=== PATIENT | male | born 1975 | race Caucasian/White ===

== ENCOUNTER 2021-06-19 12:10 | Emergency (ER) | payer BC, SELFPAY ==
[2021-06-19 12:24] VITALS: BP 126/93; PULSE 70; RESP 12; TEMP 36.7; O2SAT 98; BMI 28.0
--- NOTE | 2021-06-19 12:47 | CT_ITS ---
WS: [id number] CT scan of the head, 06/19/2021 Clinical Data: Symptoms of Acute Stroke Comparison: None. DLP: 1815.[address] scans at [facility] use at least one of these dose optimization techniques: automat ed exposure control; mA and/or kV adjustment per patient size (includes targeted exams where dose is matched to clinical indication); or iterative reconstruction. Findings: The ventricular system is normal without shift. No recent infarct or hemorrhage is seen. There are no abnormal intracerebral masses. The cerebellum and brainstem are not remarkable. Bony windows of the skull and skull base show no fractures or erosions. There is nasal septal deviati on from left to right. The mastoid air cells, internal auditory canals, sella turcica, intraorbital c ontents, and paranasal sinuses are unremarkable. CT/CT head wo con* [id number] Impression: Negative CT scan of the head
--- NOTE | 2021-06-19 12:47 | ECG_ITS ---
[facility] Test Date: 2021-06-19 Pat Name: Salvatore Mcclellan Department: Room: Gender: Male Bid Analyst: : 1975 Requested By: Skyler Bey I Order Number: [id number] Reading MD: KIMMY RAYGOZA Measurements Intervals Rudolph Rate: 62 P: 30 NV: 142 QRS: 28 QRSD: 83 T: 18 QT: 397 QTc: 405 Interpretive Statements SINUS RHYTHM No previous ECG available for comparison Electronically Signed On 06-19-2021 21:22:43 CDT by KIMMY RAYGOZA [id number]
--- NOTE | 2021-06-19 12:47 | CT_ITS ---
WS: [id number] CTA scan of the head and neck. Additional two-dimensional coronal and sagittal reconstruction along w ith MIP images was performed. 06/19/2021 Clinical Data: Stroke symptoms Comparison: None. DLP: 2217.[address] scans at [facility] use at least one of these dose optimization techniques: automat ed exposure control; mA and/or kV adjustment per patient size (includes targeted exams where dose is matched to clinical indication); or iterative reconstruction. Findings: The carotid arteries bifurcate normally into the internal carotid arteries. The vertebral arteries ar e normal. There is no lymphadenopathy within the neck. The intracerebral circulation shows that the i nternal carotid arteries bifurcate into the anterior and middle cerebral arteries. The basilar arteri al system is normal. The [place] is intact. No aneurysms are seen. There is no prevertebral soft tissue swelling. The bones of the cervical spine and skull demonstrate no erosions. The intraorbital contents, paranasal sinuses, internal auditory canals and sella turcica are normal. The parotid glands are normal. The parapharyngeal areas are unremarkable. The larynx is symmetrical. The thyroid gland shows normal enhancement. CT/CT angio headneck* [id number] Impression: 1. Negative for abnormalities of the cervical carotid and vertebral arterial sy stems. 2. Normal intracerebral circulation with intact [place].
--- NOTE | 2021-06-19 13:00 | ED_ITS ---
HPI - Neuro Symptoms/Deficit General: Chief Complaint: Neuro Symptoms/Deficit Stated Complaint: POSSIBLE TIA Time Seen by Provider: 06/19/21 12:12 Source: patient Mode of arrival: EMS Limitations: no limitations History of Present Illness: HPI Narrative: Patient is a 46-year-old male who has not had any significant past medical history but had symptoms that was diagnosed as a TIA about 2 weeks ago. Symptoms include left-sided numbness and tingling and may be, but he is not sure, some weakness. He had a work-up done at the time including head CT, MRI, carotid Doppler which was all negative. He was discharged home and his primary care provider started him on Lipitor, however it made him very weak so the patient stopped. He has continued with full-strength aspirin daily. 2 days ago he had similar symptoms that also spontaneously resolved. Today while he was driving on his way to play golf he felt flushed, felt tingling in his left arm and numbness in his left lower extremity and so called 911. He also said that he felt a little disoriented. Symptoms have all resolved now. Onset (ago): hour(s) (1) History of same: Yes Severity: mild Quality: numb Relieving factors: time Exacerbating factors: none Context: sudden onset On Anticoagulants: No Associated symptoms: Deny chest pain, cough, diaphoresis, fevers/chills, headache(s), anorexia, malaise, nausea, seizures, short of breath, syncope, tingling, vertigo, vomiting or weakness Treatments Prior to Arrival: Aspirin Review of Systems General: Reports: 10 or more systems reviewed and unremarkable except in HPI and below Const: Denies: malaise or diaphoresis Card: Denies: chest pain or syncope GI: Denies: nausea or vomiting Neuro: Denies: headache(s) or vertigo NIH stroke score NIHSS: Level Of Consciousness - 1a: 0 Level Of Consciousness Questions - 1b: Both Correct Level Of Consciousness Commands - 1c: Both Correct Best Gaze - 2: Normal Visual Jasso - 3: No Visual Loss Facial Palsy - 4: Normal Motor Arm Right - 5: No Drift Motor Arm Left - 5: No Drift Motor Leg Right - 6: No Drift Motor Leg Left - 6: No Drift Limb Ataxia - 7: Absent Sensory - 8: Normal Best Language - 9: No Aphasia Dysarthia - 10: Normal Extinction And Inattention - 11: 0 Score: Total Score: 0 Physical Exam Const: COMMON NORMALS: no acute distress, average body habitus, patient oriented x3, no limitations, healthy appearing, alert and well nourished HENMT: COMMON NORMALS: normocephalic, atraumatic and moist oral mucous membranes HEAD & SCALP: normocephalic and atraumatic Eye: COMMON NORMALS: Equal, round and reactive pupils present, EOMs intact bilaterally, conjunctivae normal and no scleral icterus CONJUNCTIVA: Yes conjunctivae normal PUPIL: Yes Equal, round and reactive pupils present Neck/C-Spine: COMMON NORMALS: full ROM, supple, no meningeal signs, no JVD and No carotid bruits Chest: COMMONS NORMALS: normal inspection of the chest and normal palpation of entire chest wall Resp: COMMON NORMALS: normal respiratory effort, No retractions, No use of accessory muscles, clear to auscultation bilaterally and percussion normal AUSCULTATION: clear to auscultation bilaterally PERCUSSION: percussion normal Cardio: COMMON NORMALS: no JVD, regular rate, regular rhythm, S1 normal heart sound present, S2 normal heart sound present, No gallops present (Cardio), No clicks present (Cardio), No murmurs present (Cardio), No rub (Cardio) and Peripheral pulses 2+ throughout RATE: regular rate RHYTHM: regular rhythm HEART SOUNDS: S1 normal heart sound present and S2 normal heart sound present PERIPHERAL PULSES: Peripheral pulses 2+ throughout GI: COMMON NORMALS: Normal to inspection, nondistended, normoactive bowel sounds present, Soft to palpation, non-tender, No hepatosplenomegaly present, no masses and no bruits PALPATION: Yes Soft to palpation and Yes No hepatosplenomegaly present Extremity: COMMON NORMALS: normal to inspection, full ROM, capillary refill normal, no calf tenderness and no pedal edema Neuro: COMMON NORMALS: patient oriented x3 SENSORIUM/ORIENTATION: Yes alert MENINGEAL SIGNS: Yes no meningeal signs Skin: COMMON NORMALS: no rashes or lesions noted, no wounds, turgor normal, no jaundice, no petechiae and no mottling GENERAL SKIN EXAM: no rashes or lesions noted and turgor normal Course Reevaluation(s): Reevaluation #1: Discussed his lab and imaging findings with him. Negative for acute findings. His was on the phone when asked discussing his findings with him. Advised that he will benefit from evaluation by a neurologist and one of the things I would like him to be evaluated for his possible seizures. Advised that he will need an EEG. They have an appointment with his primary care provider on Wednesday and a plan to ask for referral to neurology. Meanwhile we will discharge him home with no new orders. He voiced understanding and is in agreement with the plan. Time: 14:40 Vital Signs: Vital signs: Vital Signs Temperature 98.0 F 06/19/21 12:24 Pulse Rate 67 06/19/21 14:55 Respiratory Rate 17 06/19/21 14:55 Blood Pressure 133/88 06/19/21 14:55 Pulse Oximetry 97 06/19/21 14:55 MDM - Neuro Symptoms/Deficit MDM Narrative: Medical decision making narrative: 46-year-old male who presents with symptoms that he felt could be attributed to a TIA. This is his third event where he has numbness in his left upper and lower extremity. He has had a thorough work-up in the past and again today he had a CT of the head and a CTA of his head and neck. Both were negative. Labs were also unremarkable. He is discharged home with no new orders but he is to follow-up with a neurologist for evaluation for possible seizure. Lab Data: Labs: Lab Results 06/19/21 06/19/21 06/19/21 Range/Units 12:25 12:55 12:55 WBC 6.0 (4.0-10.0) 10^3/ uL RBC 5.36 H (4.1-5.3) 10^6/u L Hgb 16.1 (11.7-16.6) g/dL Hct 47.4 (42.0-52.0) % MCV 88.4 (80-94) fL MCH 30.0 (28.0-34.0) pg MCHC 34.0 (30.0-36.0) g/dL RDW 12.1 (12.1-15.1) % Plt Count 245 (130-400) 10^3/c mm MPV 11.4 H (7.4-10.4) fL Neut % (Auto) 63.9 % Lymph % (Auto) 26.4 % [place] % (Auto) 6.9 % Eos % (Auto) 1.8 % Baso % (Auto) 0.7 % Neut # (Auto) 3.80 (1.8-7.7) 10^3/u L Lymph # (Auto) 1.6 (0.8-4.8) 10^3/u L [place] # (Auto) 0.4 (0.2-0.9) 10^3/u L Eos # (Auto) 0.1 (0.0-0.8) 10^3/u L Baso # (Auto) 0.0 (0.0-0.1) 10^3/u L Nucleated RBC % (a uto) 0 % Nucleated RBCs # 0.0 /100WBC PT (12.1-14.9) SECO NDS INR (0.8-1.2) Sodium 141 (136-145) mmol/L Potassium 4.1 (3.5-5.1) mmol/L Chloride 104 (98-107) mmol/L Carbon Dioxide 26 (22-29) mmol/L Anion Gap 15.1 (5-19) BUN 13 (6-20) mg/dL Creatinine 1.0 (0.7-1.2) mg/dL GFR Calculation 81.2 L (90-130) mL/min Glucose 88 (65-115) mg/dL Calculated Osmolal ity 292 (285-295) mOsm/k g Calcium 9.4 (8.5-10.5) mg/dL Total Bilirubin 0.4 (0.15-1.2) mg/dL AST 14 (0-40) U/L ALT 20 (0-41) U/L Alkaline Phosphata se 66 (40-130) IU/L Troponin T Gen 5 n g/L 6 (0-15) ng/L Total Protein 6.8 (6.6-8.7) g/dL Albumin 4.9 (3.5-5.2) g/dL Globulin 1.9 (1.3-4.6) g/dL /10/28 Range/Units 14:11 WBC (4.0-10.0) 10^3/ uL RBC (4.1-5.3) 10^6/u L Hgb (11.7-16.6) g/dL Hct (42.0-52.0) % MCV (80-94) fL MCH (28.0-34.0) pg MCHC (30.0-36.0) g/dL RDW (12.1-15.1) % Plt Count (130-400) 10^3/c mm MPV (7.4-10.4) fL Neut % (Auto) % Lymph % (Auto) % [place] % (Auto) % Eos % (Auto) % Baso % (Auto) % Neut # (Auto) (1.8-7.7) 10^3/u L Lymph # (Auto) (0.8-4.8) 10^3/u L [place] # (Auto) (0.2-0.9) 10^3/u L Eos # (Auto) (0.0-0.8) 10^3/u L Baso # (Auto) (0.0-0.1) 10^3/u L Nucleated RBC % (a uto) % Nucleated RBCs # /100WBC PT 13.50 (12.1-14.9) SECO NDS INR 1.00 (0.8-1.2) Sodium (136-145) mmol/L Potassium (3.5-5.1) mmol/L Chloride (98-107) mmol/L Carbon Dioxide (22-29) mmol/L Anion Gap (5-19) BUN (6-20) mg/dL Creatinine (0.7-1.2) mg/dL GFR Calculation (90-130) mL/min Glucose (65-115) mg/dL Calculated Osmolal ity (285-295) mOsm/k g Calcium (8.5-10.5) mg/dL Total Bilirubin (0.15-1.2) mg/dL AST (0-40) U/L ALT (0-41) U/L Alkaline Phosphata se (40-130) IU/L Troponin T Gen 5 n g/L (0-15) ng/L Total Protein (6.6-8.7) g/dL Albumin (3.5-5.2) g/dL Globulin (1.3-4.6) g/dL Imaging Data^: CT Head: Attestation: I personally reviewed and interpreted this imaging study as follows: Radiologist's impression: [employer] [address] [place], [place] [address]XK Scan ReportSigned Patient: Puneet Mcclellan #: [id number]: 1975Acct#:[id number]/Sex: 46 / MADM Date: 06/19/21Loc: ERRoom/Bed:Attending Dr: Ordering Provider/Ordering MD: Skyler Bey MD, [facility] [place] Date of Service: 06/19/21 Procedure(s): CT head wo con* [id number] Accession Number(s): [id number] Report Number: [id number] WS: [id number] CT scan of the head, 06/19/2021 Clinical Data: Symptoms of Acute Stroke Comparison: None. DLP: 1815.[address] scans at [facility] use at least one of these dose optimization techniques: automated exposure control; mA and/or kV adjustment per patient size (includes targeted exams where dose is matched to clinical indication); or iterative reconstruction. Findings: The ventricular system is normal without shift. No recent infarct or hemorrhage is seen. There are no abnormal intracerebral masses. The cerebellum and brainstem are not remarkable. Bony windows of the skull and skull base show no fractures or erosions. There is nasal septal deviation from left to right. The mastoid air cells, internal auditory canals, sella turcica, intraorbital contents, and paranasal sinuses are unremarkable. CT/CT head wo con* [id number] Impression: Negative CT scan of the head Dictated By:Julianne Yan MDSigned By:Julianne Yan MDSigned Date/Time:06/19/21 1408DD/ [address]: Attestation: I personally reviewed and interpreted this imaging study as follows: Radiologist's impression: [place] [facility] [address], [place] [address]IS Scan ReportSigned Patient: Puneet Mcclellan #: [id number]: 1975Acct#:[id number]/Sex: 46 / MADM Date: 06/19/21Loc: ERRoom/Bed:Attending Dr: Ordering Provider/Ordering MD: Skyler Bey MD, [facility] [place] Date of Service: 06/19/21 Procedure(s): CT angio headneck* [id number] Accession Number(s): [id number] Report Number: [id number] WS: [email or web address] CTA scan of the head and neck. Additional two-dimensional coronal and sagittal reconstruction along with MIP images was performed. 06/19/2021 Clinical Data: Stroke symptoms Comparison: None. DLP: 2217.[address] scans at [facility] use at least one of these dose optimization techniques: automated exposure control; mA and/or kV adjustment per patient size (includes targeted exams where dose is matched to clinical indication); or iterative reconstruction. Findings: The carotid arteries bifurcate normally into the internal carotid arteries. The vertebral arteries are normal. There is no lymphadenopathy within the neck. The intracerebral circulation shows that the internal carotid arteries bifurcate into the anterior and middle cerebral arteries. The basilar arterial system is normal. The [place] of [place] is intact. No aneurysms are seen. There is no prevertebral soft tissue swelling. The bones of the cervical spine and skull demonstrate no erosions. The intraorbital contents, paranasal sinuses, internal auditory canals and sella turcica are normal. The parotid glands are normal. The parapharyngeal areas are unremarkable. The larynx is symmetrical. The thyroid gland shows normal enhancement. CT/CT angio headneck* [id number] Impression: 1. Negative for abnormalities of the cervical carotid and vertebral arterial systems. 2. Normal intracerebral circulation with intact [place]. Dictated By:Julianne Yan MDSigned By:Julianne Yan MDSigned Date/Time:06/19/21 1415DD/ 1408 EKG Data^: EKG 1: Attestation: I personally reviewed and interpreted this EKG as follows: EKG interpretation date: 06/19/21 EKG interpretation time: 12:54 Prior EKG tracings: not available for review Interpretation: Sinus rhythm. Heart rate 62 bpm. Normal axis. No ST changes. Discharge Plan Discharge Patient Disposition: Home Clinical Impression: Paresthesia of left arm, Anxiety Transient cerebral ischemia Qualifiers: Transient cerebral ischemia type: unspecified Qualified Code(s): G45.9 - Transient cerebral ischemic attack, unspecified Condition: Stable Prescriptions: New hydroxyzine HCl 25 mg tablet 25 mg PO TID PRN (Reason: anxiety) Qty: 30 RF: 0 Continued atorvastatin 40 mg tablet 40 mg PO DAILY MDD SEE PHARMACY COMMENT RF: 0 aspirin 81 mg tablet,chewable 81 mg PO DAILY RF: 0 colchicine 0.6 mg tablet 0.6 mg PO BID RF: 0 Discharge Orders: Discharge ED (Routine); Ordered 06/19/21 Ordered By: Skyler Bey Discharge Diet: Usual diet Discharge Activity: Increase activity as tolerated Patient Instructions: Transient Ischemic Attack (ED), Paresthesia (ED), Anxiety (ED) Activity Restrictions/Additional Instructions: Return for any new or worsening symptoms. Follow-up with your primary care provider on Wednesday as scheduled. You will need to be referred to a neurologist for further evaluation and to see if an EEG can be done also. Take the medication as prescribed and see if that helps with your anxiety symptoms. Coding Level of Care Code ED Price Accuracy Supervisor for Amanda Monteiro Exam Comprehensive
[2021-06-19 13:02] VITALS: BP 121/90; PULSE 68; RESP 16; O2SAT 97
--- NOTE | 2021-06-19 13:09 | PC.PHAR ---
PT VERIFIED MEDICATIONS FILLED BY [facility] - PT STATES HE DOES NOT TAKE HIS LIPITOR 40MG REGULARLY, BUT TRIES TO TAKE IT ONCE DAILY. PT TAKES COLCHICINE 0.6MG BID - PRESCRIBED ONCE DAILY.
[2021-06-19 13:16] LABS: Basophils % 0.7 %; Eosinophils # 0.1 10^3/uL (0.0-0.8); Eosinophils % 1.8 %; Hematocrit 47.4 % (42.0-52.0); Hemoglobin 16.1 g/dL (11.7-16.6); Lymphocytes # 1.6 10^3/uL (0.8-4.8); Lymphocytes % 26.4 %; Mean Corpuscular Volume 88.4 fL (80-94); Mean Platelet Volume 11.4 fL (7.4-10.4); Monocytes # 0.4 10^3/uL (0.2-0.9); Monocytes % 6.9 %; Neutrophils % 63.9 %; Nucleated Red Blood Cells % 0 %; Platelet Count 245 10^3/cmm (130-400); Red Blood Count 5.36 10^6/uL (4.1-5.3); Red Cell Distribution Width 12.1 % (12.1-15.1)
[2021-06-19 13:44] LABS: Alanine Aminotransferase 20 U/L (0-41); Albumin Level 4.9 g/dL (3.5-5.2); Alkaline Phosphatase 66 IU/L (40-130); Anion Gap 15.1 (5-19); Aspartate Amino Transferase 14 U/L (0-40); Blood Urea Nitrogen 13 mg/dL (6-20); Calcium 9.4 mg/dL (8.5-10.5); Carbon Dioxide 26 mmol/L (22-29); Chloride 104 mmol/L (98-107); Globulin 1.9 g/dL (1.3-4.6); Glomerular Filtration Rate 81.2 mL/min (90-130); Glucose 88 mg/dL (65-115); Osmolality Calculated 292 mOsm/kg (285-295); Potassium 4.1 mmol/L (3.5-5.1); Sodium 141 mmol/L (136-145); Total Bilirubin 0.4 mg/dL (0.15-1.2); Total Protein 6.8 g/dL (6.6-8.7)
[2021-06-19] MEDS: iohexol 350 mg/mL 100 mL Btl IV (14:04)
[2021-06-19 14:09] LABS: Troponin T (5th) Once 6 ng/L (0-15)
[2021-06-19 14:18] VITALS: BP 144/93; PULSE 68; RESP 18; O2SAT 96
[2021-06-19 14:55] VITALS: BP 133/88; PULSE 67; RESP 17; O2SAT 97
== END 2021-06-19 14:56 | disposition home or self-care (01) ==
PROVIDERS: Emergency Provider Family Medicine
DX: G45.9 Transient cerebral ischemic attack, unspecified (principal); F41.9 Anxiety disorder, unspecified
CPT/HCPCS: 70450; 70496; 70498; 80053; 84484; 85025; 85610; 93005; 99284; Q9967